=== PATIENT | male | born 1955 | race Two or more races ===

== ENCOUNTER 2019-07-29 22:34 | Inpatient (IN) | payer OTHER ==
[~2019-07-29] VITALS: Ht 172.7 cm; Wt 77.8 kg
[2019-07-29] MEDS ORDERED: IV NORMAL SALINE 1000 ML BAG IV ONE (23:00)
--- NOTE | 2019-07-29 23:20 | NUR ---
MANAGER ART AT BEDSIDE
--- NOTE | 2019-07-29 23:39 | NUR ---
PT TAKEN DOWN TO CT ACCOMPANIED BY RAREFORM, VIA GURNEY WITH IVF INFUSING TO LEFT AC G20, INTACT PT NAD 118/80 SPO2 99% HR AT 98BPM RR AT 20 BED AT LOWEST POSITION SIDERAILSX2 UP KEPT WARM DRY AND COPMFORTABLE
[2019-07-29 23:44] LABS: BASOPHILS % (AUTO) 0.2 % (0.0-2.0); EOSINOPHILS % (AUTO) 0.4 % (0.0-7.0); HEMOGLOBIN 12.6 g/dL (12.5-16.3); LYMPHOCYTES # (AUTO) 0.8 K/uL (20.0-40.0); LYMPHOCYTES % (AUTO) 6.9 % (20.5-51.5); MEAN CORPUSCULAR HEMOGLOBIN 31.1 uug (23.8-33.4); MEAN CORPUSCULAR HGB CONC 34 g/dL (32.5-36.3); MEAN CORPUSCULAR VOLUME 91.6 fL (73.0-96.2); MONOCYTES # (AUTO) 1.6 K/uL (2.0-10.0); MONOCYTES % (AUTO) 14.4 % (0.0-11.0); NEUTROPHILS # (AUTO) 8.6 K/uL (1.8-8.9); NEUTROPHILS % (AUTO) 78.1 % (38.5-71.5); PLATELET COUNT (AUTO) 159 K/uL (152-348); RED BLOOD CELL COUNT(AUTO) 4.04 MIL/uL (4.06-5.63)
[2019-07-29 23:48] LABS: POTASSIUM 3.2 mmol/L (3.5-5.1)
--- NOTE | 2019-07-29 23:53 | NUR ---
BELONGINGS LIST SIGNED AND CO-SIGNED CALL FOR BED DONE : TELE [phone]
--- NOTE | 2019-07-29 23:56 | NUR ---
4.7 LACTIC ACID CLAY TEMPERER: NOLAN
[2019-07-30] MEDS ORDERED: LACTULOSE 20 G/30 ML LIQUID UDC PO ONE
[2019-07-30 00:07] LABS: BILIRUBIN,DIRECT 1.4 mg/dL (0.0-0.2); BILIRUBIN,TOTAL 3.6 mg/dL (0.2-1.0); TOTAL PROTEIN, SERUM 6.9 g/dL (6.4-8.2)
[2019-07-30] MEDS ORDERED: LACTULOSE 20 G/30 ML LIQUID UDC ONE (00:20)
--- NOTE | 2019-07-30 00:22 | NUR ---
Patient's daughter at bedside to give Hx and home medication.
[2019-07-30] MEDS ORDERED: LACT10SO PO (00:24)
[2019-07-30] MEDS ORDERED: FOLI1TAB16 PO (00:24)
[2019-07-30] MEDS ORDERED: SPIR50TA5 PO (00:24)
[2019-07-30] MEDS ORDERED: SITA1TAB6 PO (00:24)
[2019-07-30] MEDS ORDERED: FURO40TA5 PO (00:24)
[2019-07-30] MEDS ORDERED: RIFA550T PO (00:24)
--- NOTE | 2019-07-30 00:25 | NUR ---
PT CAME BACK FROM CT ACCOMPANIED BY MMI TEACHER SIDERAILSX2 UP , BED AT LOWEST POSITION IVF PULLED OUT BY PT EN ROUTE DRESSED
[2019-07-30] MEDS ORDERED: ONDANSETRON 4 MG/2 ML VIAL IV ONE (00:45)
--- NOTE | 2019-07-30 00:45 | NUR ---
PT EMESIS X1 PT UNABLE TO TOLERATE PO MEDS ORDERED
[2019-07-30 00:51] LABS: LYMPHOCYTES % (MANUAL) 5 % (20-40); MONOCYTES % (MANUAL) 11 % (2-10); NEUTROPHILS % (MANUAL) 84 % (42-75)
[2019-07-30] MEDS ORDERED: ONDANSETRON 4 MG/2 ML VIAL ONE (00:51)
[2019-07-30] MEDS ORDERED: DEXTROSE 50% 50 ML DISP.SYRIN IV PRN (01:00)
[2019-07-30] MEDS ORDERED: MAGNESIUM HYDROXIDE 30 ML LIQUID UDC PO PRN (01:00)
[2019-07-30] MEDS ORDERED: Z GUARD REMEDY PASTE 57 GM TUBE TOP PRN (01:00)
[2019-07-30] MEDS ORDERED: ONDANSETRON 4 MG/2 ML VIAL IV PRN (01:00)
--- NOTE | 2019-07-30 01:36 | NUR ---
pt able to tolerate harris in/out daughter ENDORSED: PT HAS BEEN ABLE TO URINATE HALF A CUP A DAY FOR THE PAST 2-3DAYS EVEN WITH FUROSEMIDE
[2019-07-30 01:49] LABS: *BILIRUBIN,URIN NEGATIVE (NEGATIVE); *COLOR,URINE YELLOW (YELLOW); *KETONES,URINE TRACE (NEGATIVE); *UROBILINOGEN,URINE 0.2 E.U./dl (NORMAL); LEUKOCYTE ESTERASE ,URINE NEGATIVE (NEGATIVE); NITRITE, URINE NEGATIVE (NEGATIVE); UGLUCOSE NEGATIVE (NEGATIVE)
[2019-07-30 01:50] LABS: *BLOOD, URINE TRACE (NEGATIVE); *CLARITY,URINE HAZY (CLEAR)
[2019-07-30 01:56] LABS: BACTERIA,URINE NONE SEEN /HPF (NONE SEEN); WBC,URINE 0-3 /HPF (0-3)
[2019-07-30 01:57] LABS: SQUAMOUS EPITHELIAL CELL,UR FEW /HPF (NONE SEEN); URINE AMORPHOUS URATE MANY /HPF
--- NOTE | 2019-07-30 01:57 | NUR ---
HAND OFF AND SBAR GIVEN TO JAIME MARTIN PT WILL BE ADMITTED TO TELE RM [address] ROSADO DX: AMS PT NAD, BP AT 112/77 HR AT 93 SPO2 AT 99 RR 20 KEPT WARM DRY AND COMFORTABLE SIDERAILSX2 UP, BED AT LOWEST POSITION ACCOMPANIED BY RN, TO TRANSPORT VIA [facility]
--- NOTE | 2019-07-30 01:58 | NUR ---
4.6 LACTIC ACID ERMD AWARE UNABLE TO DO FLUID CHALLENGE DUE TO LAB RESULTS(BUN AND CREA) ENDORSED TO PRODUCTION SUPERINTENDENT PRIOR TO TRANSPORT PT SIDERAILSX2 UP, BAD AT LOWEST POSITION
--- NOTE | 2019-07-30 02:15 | NUR ---
DAUGHTER PHONE NUMBER: [phone] (NEXT OF KIN/ EMERGENCY CONTACT/MAINFRAME APPLICATIONS DEVELOPER)
--- NOTE | 2019-07-30 02:40 | NUR ---
Patient received via gurney by ER. patient seems to be restless, unable to speak khmer, no family at bedside. patient is restless and grunting but spontaneously opens eyes when spoken to him. patient is alert. Unable to assess orientation. Noted with bruising on back and on left knee. no other skin issues noted at this time. IV site on right forearm intact and patent. abdomen is very distended but has had a bowel movement. belongings checked and placed in chart, tried to orient to room. call light placed within reach. Fall precautions initiated. bed alarm on, bed in lowest position. Tele monitor placed reading Sinus Rhythm. At this time no SOB noted, place HOB semi fowlers for comfort. Will continue to monitor. patient is in no distress at this time.
[2019-07-30] MEDS: CEFTRIAXONE 2 G in IV DEXTROSE 5% 100 ML IV SCH (03:00)
[2019-07-30 05:29] VITALS: BP 118/74
[2019-07-30] MEDS: BLOOD SUGAR DIAGNOSTIC 1 EACH STRIP VI SCH ×4 (06:41→20:56)
[2019-07-30] MEDS: PANTOPRAZOLE SODIUM 40 MG TABLET.DR PO SCH (06:43)
--- NOTE | 2019-07-30 06:44 | NUR ---
Patient slept intermittently. patient is very restless, and altered . Patient grunts and tries to take off IV line, took ID band off but was placed again. Safety and fall precautions initiated. endorsed to AM shift.
[2019-07-30 07:48] LABS: BASOPHILS % (AUTO) 0.1 % (0.0-2.0); EOSINOPHILS % (AUTO) 0.4 % (0.0-7.0); HEMATOCRIT 35.7 % (36.7-47.1); LYMPHOCYTES # (AUTO) 0.7 K/uL (20.0-40.0); MEAN CORPUSCULAR HEMOGLOBIN 31.6 uug (23.8-33.4); MEAN CORPUSCULAR HGB CONC 34 g/dL (32.5-36.3); MEAN CORPUSCULAR VOLUME 94.1 fL (73.0-96.2); MONOCYTES # (AUTO) 1.5 K/uL (2.0-10.0); MONOCYTES % (AUTO) 13.6 % (0.0-11.0); NEUTROPHILS # (AUTO) 8.7 K/uL (1.8-8.9); NEUTROPHILS % (AUTO) 79.9 % (38.5-71.5); PLATELET COUNT (AUTO) 128 K/uL (152-348); RED BLOOD CELL COUNT(AUTO) 3.79 MIL/uL (4.06-5.63); WHITE BLOOD COUNT (AUTO) 10.9 K/uL (3.6-10.2)
--- NOTE | 2019-07-30 08:00 | NUR ---
PATIENT IN BED RESTING QUIETLY, STILL CONFUSED, NO SS OF ACUTE PAIN OR DISTRESS. SR ON MONITOR. AWAITING PARACENTESIS PROCEDURE
[2019-07-30 08:07] LABS: BILIRUBIN,TOTAL 2.9 mg/dL (0.2-1.0); CREATININE 5.8 mg/dL (0.6-1.3); POTASSIUM 3.2 mmol/L (3.5-5.1); TOTAL PROTEIN, SERUM 6.3 g/dL (6.4-8.2)
[2019-07-30] MEDS: LACTULOSE 20 G/30 ML LIQUID UDC PO SCH ×4 (08:20→20:42)
[2019-07-30] MEDS: FOLIC ACID 1 MG TABLET PO SCH (08:20)
--- NOTE | 2019-07-30 09:00 | NUR ---
CONSENT FOR US GUIDED PARACENTESIS OBTAINED FROM DAUGHTER VIET
[2019-07-30] MEDS: RIFAXIMIN 550 MG TABLET PO SCH ×2 (09:57→16:07)
--- NOTE | 2019-07-30 10:00 | NUR ---
SEEN BY DR WILBERT SANCHEZ PLAN TRANSFER TO ANOTHER ACUTE FACILITY DUE TO INSURANCE REASON
[2019-07-30 11:45] VITALS: BP 115/64
[2019-07-30] MEDS: INSULIN REGULAR, HUMAN 300 UNIT/3 ML VIAL SQ PRN ×3 (12:13→21:19)
[2019-07-30 13:26] LABS: *CREATININE,URINE 203.4 mg/dL (30-125); *URINE TOTAL PROTEIN RANDOM 28.7 mg/dL (<150/24HR)
[2019-07-30 13:29] LABS: *BILIRUBIN,URIN NEGATIVE (NEGATIVE); *BLOOD, URINE 2+ (NEGATIVE); *CLARITY,URINE SLIGHTLY CLOUDY (CLEAR); *COLOR,URINE YELLOW (YELLOW); *KETONES,URINE NEGATIVE (NEGATIVE); *UROBILINOGEN,URINE 0.2 E.U./dl (NORMAL); LEUKOCYTE ESTERASE ,URINE TRACE (NEGATIVE); NITRITE, URINE NEGATIVE (NEGATIVE); UGLUCOSE NEGATIVE (NEGATIVE)
[2019-07-30 13:37] LABS: BACTERIA,URINE FEW /HPF (NONE SEEN); RBC,URINE 0-3 /HPF (0-3); SQUAMOUS EPITHELIAL CELL,UR FEW /HPF (NONE SEEN); URINE AMORPHOUS URATE MODERATE /HPF; WBC,URINE 0-3 /HPF (0-3)
--- NOTE | 2019-07-30 13:55 | NUR ---
US GUIDED PARACENTESIS STARTED AT BEDSIDE BY RADIOLOGIST. PATIENT CLOSELY MONITORED.
--- NOTE | 2019-07-30 14:26 | NUR ---
PARACENTESIS COMPLETED TOOK OUT 5.2 L OF ASCITIC FLUID. PATIENT STABLE NO SS OF DISTRESS
[2019-07-30 15:50] VITALS: BP 113/72
--- NOTE | 2019-07-30 18:34 | NUR ---
awaiting placement under regal, no acute change
[2019-07-30 20:00] VITALS: BP 109/76
--- NOTE | 2019-07-31 01:00 | NUR ---
patient removed IV, new one placed on Left wrist. no acute changes. awaiting transfer.
[2019-07-31] MEDS: CEFTRIAXONE 2 G in IV DEXTROSE 5% 100 ML IV SCH (02:20)
[2019-07-31 04:00] VITALS: BP 108/75
[2019-07-31] MEDS: PANTOPRAZOLE SODIUM 40 MG TABLET.DR PO SCH (06:32)
[2019-07-31] MEDS: BLOOD SUGAR DIAGNOSTIC 1 EACH STRIP VI SCH ×4 (06:32→20:59)
--- NOTE | 2019-07-31 06:44 | NUR ---
Patient Took off IV site in L wrist , patient has had this behavior of taking off IV since admission. Per daughter he does not want the IV on and therefore continues to take it off. no iv fluids or medications due today. endorsed to AM shift, awaiting for transfer
[2019-07-31 06:45] LABS: BASOPHILS % (AUTO) 0.1 % (0.0-2.0); EOSINOPHILS # (AUTO) 0.1 K/uL (0.0-0.7); HEMATOCRIT 32.2 % (36.7-47.1); HEMOGLOBIN 10.9 g/dL (12.5-16.3); LYMPHOCYTES # (AUTO) 0.5 K/uL (20.0-40.0); LYMPHOCYTES % (AUTO) 6.2 % (20.5-51.5); MEAN CORPUSCULAR HEMOGLOBIN 31.7 uug (23.8-33.4); MEAN CORPUSCULAR HGB CONC 34 g/dL (32.5-36.3); MEAN CORPUSCULAR VOLUME 93.6 fL (73.0-96.2); MONOCYTES # (AUTO) 1.2 K/uL (2.0-10.0); MONOCYTES % (AUTO) 14.3 % (0.0-11.0); NEUTROPHILS # (AUTO) 6.7 K/uL (1.8-8.9); NEUTROPHILS % (AUTO) 78.4 % (38.5-71.5); PLATELET COUNT (AUTO) 102 K/uL (152-348); RED BLOOD CELL COUNT(AUTO) 3.45 MIL/uL (4.06-5.63); WHITE BLOOD COUNT (AUTO) 8.5 K/uL (3.6-10.2)
[2019-07-31 07:01] LABS: ALANINE AMINOTRANSFERASE 19 U/L (16-63); ALKALINE PHOSPHATASE 102 U/L (50-136); ASPARTATE AMINOTRANSFERASE 45 U/L (15-37); BILIRUBIN,TOTAL 1.2 mg/dL (0.2-1.0); CARBON DIOXIDE 18 mmol/L (21-32); CHOLESTEROL 111 mg/dL (<200); CREATININE 5.9 mg/dL (0.6-1.3); GLUCOSE 119 mg/dL (74-106); MAGNESIUM 1.7 mg/dL (1.8-2.4); TOTAL PROTEIN, SERUM 5.8 g/dL (6.4-8.2); TRIGLYCERIDES 98 MG/DL (30-150); UREA NITROGEN, BLOOD 60 mg/dL (7-18)
[2019-07-31 07:03] LABS: THYROID STIMULATING HORMONE 1.765 mIU/mL (0.358-3.740)
[2019-07-31 07:14] LABS: CHLORIDE 105 mmol/L (98-107); CREATINE KINASE, TOTAL 24 U/L (39-308); POTASSIUM 2.9 mmol/L (3.5-5.1)
[2019-07-31 07:15] LABS: HDL CHOLESTEROL < 10 mg/dL (40-60)
--- NOTE | 2019-07-31 08:00 | NUR ---
Received pt. resting in bed farsi speaking. Pt. does not have IV access as per night nurse pt. took it out twice and nurse spoke to daughter where pt. said he does not want IV. Charge nurse aware of no IV access. Pt. on clear liquid diet. Pt. denies pain or discomfort. Pt. denies SOB or difficulty breathing. Safety measures in place. Call light within reach. Will continue to monitor pt.
[2019-07-31] MEDS: LACTULOSE 20 G/30 ML LIQUID UDC PO SCH ×4 (08:22→20:59)
[2019-07-31] MEDS: FOLIC ACID 1 MG TABLET PO SCH (08:22)
[2019-07-31] MEDS: RIFAXIMIN 550 MG TABLET PO SCH ×2 (08:22→17:07)
[2019-07-31] MEDS ORDERED: POTASSIUM CHLORIDE 20 MEQ TAB.PRT.SR PO ONE (10:15)
[2019-07-31 11:37] VITALS: BP 134/77
[2019-07-31] MEDS: INSULIN REGULAR, HUMAN 300 UNIT/3 ML VIAL SQ PRN (12:17)
[2019-07-31 17:03] VITALS: BP 133/76
[2019-07-31 20:02] VITALS: BP 121/67
[2019-08-01] MEDS: CEFTRIAXONE 2 G in IV DEXTROSE 5% 100 ML IV SCH (03:01)
--- NOTE | 2019-08-01 05:30 | NUR ---
patient received lying in bed sleeping. patient refused DVT pumps on my shift. received with IV site in place. attempted multiple times to place IV, patient refused placement of IV. Antibiotic administration of Rocephin not administered due to no IV in place and patient refusal. report given to Malgorzata at [facility] and informed about situation with Rocephin. ID band off. belongings list completed. ambulance personnel was given patients belongings and patient transferred. patients v/s stable and no signs of acute distress. Addendum: 08/01/19 at 0648 by WILL HENDRICKSON RN correction: received with no IV site in place. - charge aware of situation with IV site placement and administration of IV Antibiotic
--- NOTE | 2019-08-01 07:17 | NUR ---
undid Rocephin in eMAR. due to explanation earlier. patient refused IV placement. no administration of rocephin. Malgorzata at [facility] aware. charge aware of situation.
--- NOTE | 2019-08-01 07:56 | NUR ---
patients next of kin contacted.
[2019-08-03 12:06] LABS: A/G RATIO 0.6 (0.7-1.7); ALBUMIN 2.1 g/dL (2.9-4.4); ALPHA-1-GLOBULIN 0.3 g/dL (0.0-0.4); ALPHA-2-GLOBULIN 0.3 g/dL (0.4-1.0); BETA GLOBULIN 0.8 g/dL (0.7-1.3); GLOBULIN, TOTAL 3.4 g/dL (2.2-3.9); M-SPIKE Not Observed g/dL (Not Observed)
== END 2019-08-01 06:10 | disposition short-term general hospital (02) | DRG 279 ==
LOC: ER 22:35 → TELE3 07-30 00:36 → MEDSURG3 07-30 17:00
PROVIDERS: ADMIT Nurse Practitioner Acute Care
PROC: 0W9G3ZX Drainage of Peritoneal Cavity, Percutaneous Approach, Diagnostic (ICD-10-PCS; principal; 2019-07-30)
DX: K72.00 Acute and subacute hepatic failure without coma (principal); N17.0 Acute kidney failure with tubular necrosis; I50.33 Acute on chronic diastolic (congestive) heart failure; K65.2 Spontaneous bacterial peritonitis; D68.4 Acquired coagulation factor deficiency; E87.2 Acidosis; E11.22 Type 2 diabetes mellitus with diabetic chronic kidney disease; R18.8 Other ascites; K76.6 Portal hypertension; G93.89 Other specified disorders of brain; K74.60 Unspecified cirrhosis of liver; K80.20 Calculus of gallbladder without cholecystitis without obstruction; N18.9 Chronic kidney disease, unspecified; Z86.011 Personal history of benign neoplasm of the brain; K57.30 Diverticulosis of large intestine without perforation or abscess without bleeding
CPT/HCPCS: 36415; 70030-TC; 70450; 71045; 83605; 83690; 83735; 83970; 83986; 84100; 84155; 84156; 84165; 84300; 84443; 85025; 85730; 87040; 87070; 87077; 87086; 87205; 93005; A4663; C1758; G0378; J0696; J1815; J2405; J7030; J7050; J7060